=== PATIENT | female | born 1995 | race Caucasian/White ===

== ENCOUNTER 2018-01-21 09:22 | Day surgery (SDC) | payer OTHER ==
[2018-01-21] MEDS ORDERED: Ringers Lactate 1,000 ML IV ONE (09:44)
[2018-01-21 10:06] LABS: Specific Gravity 1.015 (1.005-1.030)
[2018-01-21 10:10] LABS: Absolute Lymphocytes (CBC) 1.9 K/uL (0.7-4.9); Absolute Monocytes 0.7 K/uL (0.1-1.3); Absolute Neutrophil 4.9 K/uL (1.8-8.0); Basophils % 0.3 % (0-1.3); Eosinophils % 11.3 % (0-4.4); Hematocrit 37.1 % (36.0-45.0); Lymphocytes % 22.7 % (15.3-44.8); MCH 31.5 pg (27.0-35.0); MPV 11.4 fL (7.6-11.3); Monocytes % 7.9 % (3.3-12.3); RBC Red Blood Cell Count 4.08 M/uL (3.86-4.86)
[2018-01-21 10:26] LABS: ALT/SGPT 22 U/L (12-78); AST/SGOT 20 U/L (15-37); Albumin 3.8 g/dL (3.4-5.0); Alkaline Phosphatase 57 U/L (45-117); Amylase Level 35 U/L (25-115); BUN Blood Urea Nitrogen 17 mg/dL (7-18); Bicarbonate 26 mmol/L (21-32); Bilirubin Direct 0.1 mg/dL (0-0.2); Bilirubin Total 0.5 mg/dL (0.2-1.0); Glucose Level 81 mg/dL (74-106); Lipase 104 U/L (73-393); Potassium 3.9 mmol/L (3.5-5.1); Protein, Total 6.9 g/dL (6.4-8.2); Sodium Level 143 mmol/L (136-145)
[2018-01-21] MEDS: CEFOXITIN/SWI 1gm 1 GM/10 ML SYR ONE ×3 (10:42→10:52)
[2018-01-21] MEDS ORDERED: MIDAZOLAM HCL 2 MG/2 ML INJ ONE (10:43)
[2018-01-21] MEDS ORDERED: LIDOCAINE 1% MPF 5 ML VIAL ONE (10:43)
[2018-01-21] MEDS ORDERED: PROPOFOL 200 MG/20 ML VIAL IV ONE (10:43)
[2018-01-21] MEDS ORDERED: FENTANYL CITR 100 MCG/2 ML ONE (10:43)
[2018-01-21] MEDS ORDERED: ROCURONIUM 50 MG/5 ML VIAL IV ONE (10:44)
[2018-01-21] MEDS ORDERED: LANO/MINERAL OIL/PETRO 3.5 GM ONE (11:00)
[2018-01-21] MEDS ORDERED: NEOSTIGMINE 1 MG/ML -5 ML SYRINGE ONE (11:10)
[2018-01-21] MEDS ORDERED: ONDANSETRON 4 MG/2 ML VIAL ONE (11:10)
[2018-01-21] MEDS ORDERED: GLYCOPYRROLATE 0.2 MG/ML SYR ONE (11:10)
[2018-01-21] MEDS ORDERED: KETOROLAC 30 MG/ML INJ ONE (11:10)
--- NOTE | 2018-01-21 11:24 | P.BOP ---
Preoperative diagnosis: intractable ruq abd pain, acute cholecystitis, biliary dyskinesia Postoperative diagnosis: same Primary procedure: Laparoscopic cholecystectomy Manager Organizational: Roula Dukes (Mohsen) Estimated blood loss: <10cc Specimen: gb Findings: as above Anesthesia: General Complications: None Transferred to: Recovery Room Condition: Good
[2018-01-21] MEDS ORDERED: Mastisol Adhesive Liq ONE (11:26)
[2018-01-21] MEDS: MEPERIDINE HCL 50 MG/ML AMP ONE ×2 (11:52→12:02)
[2018-01-21] MEDS ORDERED: CODEINE 30MG/APAP 300MG TAB ONE (12:52)
--- NOTE | 2018-01-21 20:09 | OP ---
Date of Procedure: 01/21/2018 Surgeon: Kal Allred MD Jewellery Designer: AYLEEN Henry. Preoperative Diagnoses: Intractable right upper quadrant abdominal pain, acute cholecystitis, biliar y dyskinesia. Postoperative Diagnoses: Intractable right upper quadrant abdominal pain, acute cholecystitis, bilia ry dyskinesia. Procedure: Laparoscopic cholecystectomy. Estimated Blood Loss: Less than 10 cc. Specimen: Gallbladder. Anesthesia: General plus local. Indications: This is a case of a female, who comes to us with on and off abdominal pain. She tried many modalities. She has a primary doctor, a band straightener at [facility]. She has been trying to modify what she eats. Her mom works in [facility] and she did her own cocktail ER. The way ER was explained to her to rule out any gastritis since still has abdominal pain associated with nausea, vomiting, bloating, and epigastric right upper quadrant pain radiating to the back. The patient has ultrasound. The patient has HIDA scan showing a biliary dyskinesia with low ejection fraction and d uplication of symptoms with diet ingestion. The patient wants the gallbladder out. She wanted that as soon as possible. She is moving out of the area and so her hospitalist was kind enough to allow u s to go today with benefits, alternatives, and risks of laparoscopic, possible open cholecystectomy f ully explained to the patient and mother, which include, but not limited to infection, bleeding, fernando ge to adjacent structures, anesthesia complication, recurrence, cystic duct leakage, choledocholithia sis, bile leak, pancreatitis, SC, even . She also understands this may not relieve any symptoms . She might need more than one surgical intervention. She is still encouraged to follow up with her band straightener and her dietitian. She signed a consent. Description Of Procedure: The patient was brought to the operating room, placed in supine position. Anesthesia was done without complication. A time-out was called. Abdominal area was prepped and dr aped in a sterile fashion. Local anesthetic applied over the infraumbilical region. Incision was ca rried down to fascia, which was opened under direct vision. Peritoneum was encountered, opened under direct vision. Vicryl #1 placed inside the fascia. Mika trocar was carefully introduced. No ble eding was obtained. I placed 5 mm trocar in the right upper quadrant, 3 of them under direct visuali zation. A grasper placed in the fundus of the gallbladder, another grasper in the infundibulum. The gallbladder was retracted in the inferolateral fashion exposing the triangle of Calot and obtaining critical view of safety. The cystic duct and cystic artery were clearly isolated free circumferentia lly and a connection between those and the gallbladder were clearly identified. I proceeded to ligat e those by using at least 2 clips proximal and 1 clip distal, ligation in middle. Same was done with the cystic artery. No bile leak. No bleeding. The gallbladder was removed from liver using Bovie cauterizer and removed from abdominal cavity using an EndoCatch through the umbilical incision. The area was inspected once again. No bile leak. No bleeding. The clips were intact. Gallbladder martha a was intact. At that moment, I proceeded to remove the trocars under direct vision. Deflated pneum operitoneum. Closed the fascia with #1 Vicryl. Irrigated subcutaneous tissue, closed that with 3-0 chromic and skin in a subcuticular fashion with 3-0 chromic and Steri-Strips on top. Sponge count an d instrument counts were correct. The patient tolerated the procedure well. The patient was sent to recovery in stable condition. Diagnoses: Intractable right upper quadrant abdominal pain, acute cholecystitis, biliary dyskinesia. Procedure: Laparoscopic cholecystectomy. Disposition: Home. Activity: As tolerated. No heavy lifting. Followup: Follow up in my office 1 week. Call for appointment [phone]. Keep the area dry for 48 h ours, then may shower. Keep Steri-Strips intact. Medications: See orders. LOTTIE/HARJIT Voice ID: [id number] Report ID: [id number]
== END 2018-01-21 13:41 | disposition home or self-care (01) ==
LOC: OR 09:22
PROVIDERS: ATTEND Surgery
PROC: 0FT44ZZ Resection of Gallbladder, Percutaneous Endoscopic Approach (ICD-10-PCS; principal; 2018-01-21 11:15)
DX: K82.8 Other specified diseases of gallbladder (principal); K81.0 Acute cholecystitis
CPT/HCPCS: 36415; 80048; 80076; 81025; 82150; 83690; 85025; 88304; J2175; J2250; J2405; J2710; J3010